=== PATIENT | female | born 1965 | race Hispanic/Latino ===

== ENCOUNTER 2024-10-13 06:17 | Day surgery (SDC) | payer MEDICAID ==
[~2024-10-13] VITALS: Ht 149.9 cm; Wt 65.8 kg
[2024-10-13] VITALS (11 sets, daily range): BP systolic 116–146; BP diastolic 54–79; PULSE 60–70; RESP 14–16; TEMP 97.3–98.1
[2024-10-13] MEDS: 0.9%NACL 1000ML 1,000 ML IV ONE (08:00)
[2024-10-13] MEDS ORDERED: proPOFol 10 MG/ML 20ML VIAL IV ONE (08:30)
[2024-10-13] MEDS ORDERED: LIDOCAINE PF 100MG/5ML (2%) SYRINGE 5ML ONE (08:30)
[2024-10-13] MEDS ORDERED: FLUO20CA30 PO (09:24)
[2024-10-13] MEDS ORDERED: ALPR-409 PO (09:24)
[2024-10-13] MEDS ORDERED: METH-811 PO (09:24)
[2024-10-13] MEDS ORDERED: PREG100C PO (09:24)
--- NOTE | 2024-10-13 09:31 | NUR ---
DIABETIC CHECKED H&P FOR DIABETES. H&P STATES DIABETIC. PATIENT STATED "I AM NOT A DIABETIC ANYMORE. I HAVE NOT BEEN FOR 8 YEARS". PATIENT DENIED SUGAR CHECK.
--- NOTE | 2024-10-13 09:50 | NUR ---
PICC LINE PICC LINE TO RIGHT UPPER ARM DOUBLE LUMEN. SECURED WITH TEGADERM DRESSING THAT WAS PEELING UPON ARRIVAL FROM PACU. JOSE MARIA QUINTANILLA RN HELPED BY DISCHARGING FLUIDS FROM PICC LINE. LINE DISCONNECTED, USING ACHOL WIPES TO CLEAN LUMEN PORT JOSE MARIA PROCEEDED TO FLUSH PORT WITH A FLUSH. A CAP WAS APPLIED TO THE DISCHARGED PICC LINE. PATIENT REQUESTED A REINFORCEMENT OF DRESSING. ANOTHER TEGADERM PLACED OVER PEELING DRESSING. PATIENT REQUESTED ANOTHER SECURED DRESSING. OFFERED COBAN TO SECURE DRESSING. DRESSING SECURED WITH COBAN NOT WRAPPED TIGHTLY. NO ACTIVE BLEEDING NOTED FROM PICC LINE NO DRAINAGE NOTED FROM PICC LINE NO REDNESS OR SWELLING NOTED TO PICC LINE.
== END 2024-10-13 09:58 | disposition home or self-care (01) ==
LOC: ENDO 06:17 → DAH 06:17 → ENDO 09:58
PROVIDERS: ATTEND Surgery
DX: K30 Functional dyspepsia (principal); K21.00 Gastro-esophageal reflux disease with esophagitis, without bleeding; K22.89 Other specified disease of esophagus; I10 Essential (primary) hypertension; E11.9 Type 2 diabetes mellitus without complications; E78.2 Mixed hyperlipidemia; E78.00 Pure hypercholesterolemia, unspecified; E66.01 Morbid (severe) obesity due to excess calories; Z68.29 Body mass index [BMI] 29.0-29.9, adult; Z98.84 Bariatric surgery status; Z90.49 Acquired absence of other specified parts of digestive tract; Z98.890 Other specified postprocedural states
CPT/HCPCS: 43239; J7030; J2003; J2704; A4620; A4215 ×2; A4223; A4222; A4221; A4663; A4606; J3490

== ENCOUNTER 2024-11-10 07:11 | Day surgery (SDC) | payer MEDICAID ==
[2024-11-10] VITALS (13 sets, daily range): BP systolic 118–150; BP diastolic 58–86; PULSE 55–79; RESP 14–18; TEMP 97.6–97.9
[~2024-11-10] VITALS: Ht 149.9 cm; Wt 66.7 kg
[~2024-11-10 07:11] MED LIST: 0.9%NACL 1000ML 1,000 ML IV ONE; ALPR-409 PO; FLUO20CA30 PO; METH-811 PO; PREG100C PO
[2024-11-10] MEDS ORDERED: proPOFol 10 MG/ML 20ML VIAL IV ONE (08:03)
[2024-11-10] MEDS ORDERED: rocuRONium bROMide 10MG/1ML 5ML VL ONE (08:03)
[2024-11-10] MEDS ORDERED: FENTanyl CITRate PF 50 MCG/1 ML 2ML VIAL ONE (08:03)
[2024-11-10] MEDS ORDERED: LIDOCAINE PF 100MG/5ML (2%) SYRINGE 5ML ONE (08:03)
[2024-11-10] MEDS ORDERED: GLYCOPYRROLATE 0.2 MG/ML 5 ML VIAL ONE (08:12)
[2024-11-10] MEDS ORDERED: dexaMETHasone SOD PHOSPHATE 10MG/ML 1ML VIAL ONE (08:13)
[2024-11-10] MEDS ORDERED: NEOSTIGMINE METHYLSULFATE 1MG/ML IV ONE (08:13)
[2024-11-10] MEDS ORDERED: ondanSETRON 4MG INJ ONE (08:13)
--- NOTE | 2024-11-10 10:05 | NUR ---
Full and complete discharge instructions given to Patient and Family both verbally and in writing. Explained GI procedure precautions and follow up. All questions answered. PIV removed with catheter tip intact. Home with Family W/C to POV.
== END 2024-11-10 10:00 | disposition home or self-care (01) ==
LOC: DAH 07:11 → ENDO 07:11
PROVIDERS: ATTEND Surgery
DX: K30 Functional dyspepsia (principal); K91.89 Other postprocedural complications and disorders of digestive system; K22.89 Other specified disease of esophagus; I10 Essential (primary) hypertension; E11.9 Type 2 diabetes mellitus without complications; E66.01 Morbid (severe) obesity due to excess calories; Z98.84 Bariatric surgery status; Z98.0 Intestinal bypass and anastomosis status; E78.00 Pure hypercholesterolemia, unspecified; Z90.49 Acquired absence of other specified parts of digestive tract; Z79.899 Other long term (current) drug therapy
CPT/HCPCS: 43270; A4606; C1726; J1100; J2003; J2405; J2704; J2710; J3010; J3490; J7030; A4215; A4221; A4222; A4223; A4620; A4663; C9901